=== PATIENT | female | born 2000 ===

== ENCOUNTER 2020-03-06 03:09 | Outpatient (CLI) | payer OTHER ==
[2020-03-06 03:49] VITALS: BP 126/81
== END 2020-03-06 04:58 | disposition home or self-care (01) ==
LOC: TRG 03:09 → APU 03:10 → TRG 04:58
PROVIDERS: ATTEND Obstetrics & Gynecology
DX: O26.853 Spotting complicating pregnancy, third trimester (principal); Z3A.39 39 weeks gestation of pregnancy
CPT/HCPCS: 36415; 59025; 81001; 82565; 83615; 84450; 84460; 84550; 85027

== ENCOUNTER 2020-03-06 10:45 | Outpatient (CLI) | payer OTHER ==
[2020-03-06 12:55] LABS: Bilirubin,Urine NEG (Negative); Blood,Urine NEG (Negative); Color,Urine Yellow (Yellow); Mucus,Urine 1+ /HPF; Urobilinogen,Urine < 2.0 mg/dL (<2.0)
[2020-03-06 13:09] LABS: Hematocrit 37.6 % (30.3-42.9); Hemoglobin 13.3 gm/dl (10.1-14.3); Mean Corpuscular HGB Conc 35 % (30-34); Mean Corpuscular Volume 96 fl (79-97); Platelet Count 159 K/mm3 (140-440); Red Blood Count 3.93 M/mm3 (3.65-5.03); Red Cell Distribution Width 13.5 % (13.2-15.2)
[2020-03-06 13:25] LABS: Alanine Aminotransferase 10 units/L (7-56)
[2020-03-06 14:35] VITALS: BP 90/54
== END 2020-03-06 15:11 | disposition home or self-care (01) ==
LOC: TRG 10:45 → APU 10:56 → TRG 15:11
PROVIDERS: ATTEND Obstetrics & Gynecology
DX: O13.3 Gestational [pregnancy-induced] hypertension without significant proteinuria, third trimester (principal); Z3A.39 39 weeks gestation of pregnancy
CPT/HCPCS: 36415; 59025; 81001; 82565; 83615; 84450; 84460; 84550; 85027